=== PATIENT | male | born 1980 | race African-American/Black ===

== ENCOUNTER 2016-04-23 08:23 | Emergency (ER) | payer SELFPAY ==
[~2016-04-23] VITALS: Ht 180.3 cm; Wt 75.0 kg
[2016-04-23 08:27] VITALS: BP 108/70; PULSE 41; RESP 16; TEMP 97.1; O2SAT 100
[2016-04-23 08:37] VITALS: BP 108/70; PULSE 40; RESP 16; O2SAT 100
[2016-04-23] MEDS ORDERED: SODIUM CHLOR 0.9% 1000 ML INJ 1,000 ML IV ONE (08:45)
--- NOTE | 2016-04-23 08:54 | PD ---
HPI Chief Complaint: Injury Time Seen by Provider: 08:33 Travel History International Travel<30 days: No Contact w/Intl Traveler<30days: No Traveled to known affect area: No History of Present Illness HPI 35-year-old male with history of no significant past medical issues, presents to the ER brought in by EMS because he accidentally punched a nail using a nail gun through his left thumb. He was given morphine 2 mg IV by EMS in route and his heart rate went down to the 40s and his blood pressures dropped. EMS had given him 0.4 Narcan with some improvement in heart rate. He arrives in the ER more comfortable, still in pain in the left thumb. He denies any chest pains, trouble breathing, dizziness, or other symptoms. Modifying Factors: None Associated Signs & Symptoms: Nail in the left thumb Risk Factors: None PFSH Social History Tobacco Use: Yes Allergies-Medications (Allergen,Severity, Reaction): Coded Allergies: No Known Allergies (Unverified , 04/23/16) Reported Meds & Prescriptions Reported Meds & Active Scripts Active No Active Prescriptions or Reported Medications Review of Systems Except as stated in HPI: all other systems reviewed are Neg Physical Exam Narrative GENERAL: Well-nourished, well-developed young -[place] male patient in no acute distress. SKIN: Warm and dry. HEAD: Normocephalic. EYES: No scleral icterus. No injection or drainage. NECK: Supple, trachea midline. CARDIOVASCULAR: Regular rate and rhythm without murmurs, gallops, or rubs. RESPIRATORY: Breath sounds equal bilaterally. No accessory muscle use. GASTROINTESTINAL: Abdomen soft, non-tender, nondistended. MUSCULOSKELETAL: No cyanosis, or edema. BACK: Nontender without obvious deformity. No CVA tenderness. Left hand: There is notable metal nail in the left DIP area. Neurovascularly intact below the injury. Data Data Last Documented VS Vital Signs Date Time Temp Pulse Resp B/P Pulse Ox O2 Delivery O2 Flow Rate FiO2 04/23/16 09:58 54 18 102/67 99 04/23/16 08:37 Room Air 04/23/16 08:27 97.1 Orders Hand, Complete ([id number]) (04/23/16 08:33) Complete Blood Count With Diff (04/23/16 08:33) Basic Metabolic Panel (Bmp) (04/23/16 08:33) Sodium Chlor 0.9% 1000 Ml Inj (Ns 1000 M (04/23/16 08:45) Tetanus/Diphtheria Tox Adult (Tetanus/Di (04/23/16 10:00) Lidocaine 1% Inj (50 Ml) (Xylocaine 1% I (04/23/16 10:00) Cephalexin (Keflex) (04/23/16 10:00) Electrocardiogram (04/23/16 08:35) Wound Care (04/23/16 11:09) Bupivacaine Pf 0.5% Inj (Marcaine Pf 0.5 (04/23/16 11:15) Labs Laboratory Tests Test 04/23/16 08:40 White Blood Count 8.1 TH/MM3 Red Blood Count 5.04 MIL/MM3 Hemoglobin 14.9 GM/DL Hematocrit 46.5 % Mean Corpuscular Volume 92.1 FL Mean Corpuscular Hemoglobin 29.5 PG Mean Corpuscular Hemoglobin 32.0 % Concent Red Cell Distribution Width 13.9 % Platelet Count 181 TH/MM3 Mean Platelet Volume 8.1 FL Neutrophils (%) (Auto) 48.6 % Lymphocytes (%) (Auto) 36.6 % Monocytes (%) (Auto) 7.9 % Eosinophils (%) (Auto) 6.0 % Basophils (%) (Auto) 0.9 % Neutrophils # (Auto) 3.9 TH/MM3 Lymphocytes # (Auto) 3.0 TH/MM3 Monocytes # (Auto) 0.6 TH/MM3 Eosinophils # (Auto) 0.5 TH/MM3 Basophils # (Auto) 0.1 TH/MM3 CBC Comment DIFF FINAL Differential Comment Sodium Level 141 MEQ/L Potassium Level 3.8 MEQ/L Chloride Level 111 MEQ/L Carbon Dioxide Level 21.3 MEQ/L Anion Gap 9 MEQ/L Blood Urea Nitrogen 11 MG/DL Creatinine 1.06 MG/DL Estimat Glomerular Filtration 80 ML/MIN Rate Random Glucose 102 MG/DL Calcium Level 8.3 MG/DL [facility] Medical Decision Making Medical Screen Exam Complete: Yes Emergency Medical Condition: Yes Medical Record Reviewed: Yes Interpretation(s) Last 24 hours Impressions Hand X-Ray 04/23/16 0834 Signed Impressions: Service Date/Time: April 08:54 - CONCLUSION: 1. Nando nail with small attached wire passes through proximal phalanx of left thumb. Naresh Garcia MD Differential Diagnosis Nail in the left thumb/bradycardia Narrative Course X-ray shows fracture and nando nail in the proximal phalanx. The case was discussed with Dr. Victoria via telephone and he saw the x-ray on [facility] system, states that the patient can get the nail removed in the ER, placed in a finger splint, Keflex, and follow-up with him next week. Return for any worsening in pain, signs of infection and as needed. Nail was removed by [facility]. Please see notes. The plan was discussed with patient and he states understanding. Diagnosis Primary Impression: PNCTR W FOREIGN BODY OF UNSP FINGER W/O DAMAGE TO NAIL, INIT Referrals: Adolfo Victoria III, MD Med/Other Pt SpecificInfo: Prescription(s) given Scripts Cephalexin (Keflex)500 Mg [id number] Mg PO Q6H #28 CAP Ref 0 Prov:Lucie Newton MD 04/23/16 Hydrocodone-Acetaminophen (Lortab)5-325 Mg Tab1 Tab PO Q6H PRN (PAIN) #12 TAB Ref 0 Prov:Lucie Newton MD 04/23/16 Disposition: 01 DISCHARGE HOME Condition: Stable Lucie Newton MD Apr 23, 2016 08:54
[2016-04-23 08:58] LABS: AUTOMATED NEUTROPHIL # 3.9 TH/MM3 (1.8-7.7); BASOPHIL # 0.1 TH/MM3 (0-0.2); BASOPHIL % 0.9 % (0.0-2.0); EOSINOPHIL # 0.5 TH/MM3 (0-0.4); HEMATOCRIT 46.5 % (39.0-51.0); HEMO FLAGS DIFF FINAL; LYMPH % 36.6 % (9.0-44.0); MEAN CELL VOLUME 92.1 FL (80.0-100.0); MEAN CORPUSCULAR HEMOGLOBIN 29.5 PG (27.0-34.0); MONO % 7.9 % (0.0-8.0); NEUT % 48.6 % (16.0-70.0); PLATELET COUNT 181 TH/MM3 (150-450); RED BLOOD COUNT 5.04 MIL/MM3 (4.50-5.90); RED CELL DISTRIBUTION WIDTH 13.9 % (11.6-17.2); WHITE BLOOD COUNT 8.1 TH/MM3 (4.0-11.0)
[2016-04-23 09:08] LABS: BICARBONATE 21.3 MEQ/L (21.0-32.0); POTASSIUM 3.8 MEQ/L (3.5-5.1)
--- NOTE | 2016-04-23 09:26 | RADRPT ---
EXAM DATE/TIME: 04/23/2016 08:54 [facility] COMPARISON: No previous studies available for comparison. INDICATIONS : Foreign body left thumb, nando nail MEDICAL HISTORY : None. SURGICAL HISTORY : None. ENCOUNTER: Initial ACUITY: 1 day PAIN SCORE: 9/10 LOCATION: Left Hand FINDINGS: Three view examination of the left hand demonstrates a nando nail passing through the proximal phal anx of the left thumb with a small attached wire. No other radiopaque foreign bodies. CONCLUSION: 1. Nando nail with small attached wire passes through proximal phalanx of left thumb. Naresh Garcia MD on April 23, 2016 at 9:16 Board Certified Radiologist. This report was verified electronically.
[2016-04-23 09:58] VITALS: BP 102/67; PULSE 54; RESP 18; O2SAT 99
[2016-04-23] MEDS ORDERED: LIDOCAINE HCL 1% 50 ML VIAL INFIL ONE (10:00)
[2016-04-23] MEDS ORDERED: TETANUS/DIPHTHERIA TOXOID ADULT 0.5 ML VIAL IM ONE (10:00)
[2016-04-23] MEDS ORDERED: CEPHALEXIN MONOHYDRATE 500 MG CAP PO ONE (10:00)
[2016-04-23] MEDS ORDERED: BUPIVACAINE HCL PF 0.5% 10 ML VIAL INFIL ONE (11:15)
[2016-04-23] MEDS ORDERED: CEPH-460 PO (11:47)
[2016-04-23] MEDS ORDERED: HYDR-3533 PO (11:47)
--- NOTE | 2016-04-23 11:49 | PD ---
Physical Exam Date Seen by Provider: Apr 23, 2016 Time Seen by Provider: 11:45 Narrative 35-year-old male that presents to the ED for evaluation of male stuck to the first digit of the left hand. I was asked by my attending to remove the nail and sutured. Please refer to her note. Data Data Last Documented VS Vital Signs Date Time Temp Pulse Resp B/P Pulse Ox O2 Delivery O2 Flow Rate FiO2 04/23/16 09:58 54 18 102/67 99 04/23/16 08:37 Room Air 04/23/16 08:27 97.1 Orders Hand, Complete ([id number]) (04/23/16 08:33) Complete Blood Count With Diff (04/23/16 08:33) Basic Metabolic Panel (Bmp) (04/23/16 08:33) Sodium Chlor 0.9% 1000 Ml Inj (Ns 1000 M (04/23/16 08:45) Tetanus/Diphtheria Tox Adult (Tetanus/Di (04/23/16 10:00) Lidocaine 1% Inj (50 Ml) (Xylocaine 1% I (04/23/16 10:00) Cephalexin (Keflex) (04/23/16 10:00) Electrocardiogram (04/23/16 08:35) Wound Care (04/23/16 11:09) Bupivacaine Pf 0.5% Inj (Marcaine Pf 0.5 (04/23/16 11:15) Finger ([id number]) (04/23/16 ) Splint Or Brace Apply/Monitor (04/23/16 11:44) Labs Laboratory Tests Test 04/23/16 08:40 White Blood Count 8.1 TH/MM3 Red Blood Count 5.04 MIL/MM3 Hemoglobin 14.9 GM/DL Hematocrit 46.5 % Mean Corpuscular Volume 92.1 FL Mean Corpuscular Hemoglobin 29.5 PG Mean Corpuscular Hemoglobin 32.0 % Concent Red Cell Distribution Width 13.9 % Platelet Count 181 TH/MM3 Mean Platelet Volume 8.1 FL Neutrophils (%) (Auto) 48.6 % Lymphocytes (%) (Auto) 36.6 % Monocytes (%) (Auto) 7.9 % Eosinophils (%) (Auto) 6.0 % Basophils (%) (Auto) 0.9 % Neutrophils # (Auto) 3.9 TH/MM3 Lymphocytes # (Auto) 3.0 TH/MM3 Monocytes # (Auto) 0.6 TH/MM3 Eosinophils # (Auto) 0.5 TH/MM3 Basophils # (Auto) 0.1 TH/MM3 CBC Comment DIFF FINAL Differential Comment Sodium Level 141 MEQ/L Potassium Level 3.8 MEQ/L Chloride Level 111 MEQ/L Carbon Dioxide Level 21.3 MEQ/L Anion Gap 9 MEQ/L Blood Urea Nitrogen 11 MG/DL Creatinine 1.06 MG/DL Estimat Glomerular Filtration 80 ML/MIN Rate Random Glucose 102 MG/DL Calcium Level 8.3 MG/DL [facility] Medical Record Reviewed: Yes Supervised Visit with SHERRELL: No Procedures Procedure Narrative LACERATION and nail removal LOCATION: left 1st digit LENGTH: 0.5 cm NUMBER OF STITCHES/ALEJANDRO: 1 suture REPAIR: The area of the laceration was prepped with Betadine and sterilely draped. The digit was infiltrated with 0.5 % Bupivacaina and 1% Lidocaine for digital block. The wound was copiously irrigated and explored without evidence of , tendon injury or neurovascular injury. patient does have a nail in the finger. After assesing that finger was properly anesthesized using sterile large sized twezzers and backwards pressure nail was removed with minimal discomfort. The wound was irrigated with 1 L of saline. The wound was closed using 4-0 Prolene. This was a 1 layer repair. A sterile dressing was applied. The patient was advised to keep the dressing clean and dry. Patient tolerated the procedure well. Scripts No Active Prescriptions or Reported Meds Lewis Rojo Apr 23, 2016 11:49
--- NOTE | 2016-04-23 12:18 | RADRPT ---
EXAM DATE/TIME: 04/23/2016 12:02 [facility] COMPARISON: HAND LEFT COMPLETE ([id number]), April 23, 2016, 8:54. INDICATIONS : Nail removal from left hand first digit. MEDICAL HISTORY : None. SURGICAL HISTORY : None. ENCOUNTER: Subsequent ACUITY: 1 day PAIN SCORE: 0/10 LOCATION: Left hand first digit FINDINGS: Examination of the first digit of the left hand demonstrates minimal fracture proximal phalanx of the thumb. Soft tissue swelling.. No radiopaque foreign bodies are seen. The soft tissues are intact.C ONCLUSION: Minimal nondisplaced fracture of the proximal phalanx of the thumb. Nail has been removed. Dominic Lee MD on April 23, 2016 at 12:14 Board Certified Radiologist. This report was verified electronically.
[2016-04-23 12:23] VITALS: BP 114/68; PULSE 60; RESP 16; O2SAT 100
--- NOTE | 2016-04-24 14:33 | EKG ---
Date Performed: 04/23/2016 Time Performed: 08:35:41 PTAGE: 35 years EKG: SINUS BRADYCARDIA BORDERLINE ECG NO PREVIOUS TRACING DOCTOR: Marika Christensen Interpretating Date/Time 04/24/2016 14:24:39
== END 2016-04-23 13:46 | disposition home or self-care (01) ==
LOC: NEPE 08:23
DX: S62.512B Displaced fracture of proximal phalanx of left thumb, initial encounter for open fracture (principal); R00.1 Bradycardia, unspecified; W29.4XXA Contact with nail gun, initial encounter; Z23 Encounter for immunization
CPT/HCPCS: 12001; 73130; 73140; 80048; 85025; 90471; 90714; 93005; 96360; 96361; 99284; J7030; L3808